=== PATIENT | male | born 1990 | race Two or more races ===

== ENCOUNTER 2022-04-03 15:00 | Emergency (ER) | payer SELFPAY ==
[~2022-04-03] VITALS: Ht 182.9 cm; Wt 82.0 kg
[2022-04-03 15:07] VITALS: BP 126/72
[2022-04-03] MEDS ORDERED: ONDANSETRON 4MG ODT PO STA (15:14)
[2022-04-03] MEDS ORDERED: FAMOTIDINE 20MG TABLET PO ONE (15:15)
== END 2022-04-03 20:47 | disposition left against medical advice (07) ==
LOC: ER 15:00
DX: Z53.21 Procedure and treatment not carried out due to patient leaving prior to being seen by health care provider (principal)